=== PATIENT | male | born 1970 | race African-American/Black ===

== ENCOUNTER → 2017-07-15 | Outpatient (CLI) | payer MEDICAID | LOC: FIMAGING 10:19 → EDSTATUS 10:20 | DX: Z11.1 Encounter for screening for respiratory tuberculosis (principal) ==

== ENCOUNTER 2017-07-31 09:32 | Emergency (ER) | payer MEDICAID, OTHER ==
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
[2017-07-31 09:42] VITALS: RESP 16; TEMP 98.4
[2017-07-31] MEDS ORDERED: OXYCODONE/APAP 5/325 TAB PO ONE (11:32)
[2017-07-31 13:18] VITALS: BP 144/94; PULSE 67; O2SAT 95
== END 2017-07-31 13:05 | disposition home or self-care (01) ==
LOC: EDUNIT#
DX: S20.229A Contusion of unspecified back wall of thorax, initial encounter (principal); V18.4XXA Pedal cycle driver injured in noncollision transport accident in traffic accident, initial encounter; Y92.410 Unspecified street and highway as the place of occurrence of the external cause; Y99.8 Other external cause status; Y93.55 Activity, bike riding